=== PATIENT | female | born 1970 | race Caucasian/White ===

== ENCOUNTER 2017-05-13 10:34 | Inpatient (IN) | payer MEDICAID, OTHER ==
[~2017-05-13] VITALS: Ht 157.5 cm; Wt 62.0 kg
--- NOTE | 2017-05-13 11:11 | ERD ---
ER Documentation Chief Complaint Date/Time DATE: 05/13/17 TIME: 11:10 Chief Complaint PMD SENT PT FOR BLOOD TRANSFUSION, DENIES ANY OTHER COMPLAINT HPI Patient is a 47-year-old female who presents to the ED for check of anemia and possible blood transfusion. She states that she was sent here from her primary care clinic, [facility] and was told that she needs a blood transfusion. She states that they told her to come last however she states that she did not want to come and decided to come today. Her only complaint is fatigue and feeling tired. She denies dizziness. Denies headache. She denies bleeding. She has no other complaints. States that she is not taking iron supplements. ROS All systems reviewed and are negative except as per history of present illness. Medications Home Meds No Active Prescriptions or Reported Meds Allergies Allergies: Coded Allergies: No Known Allergy (Unverified , 05/23/12) PMhx/Soc Medical and Surgical Hx: pt denies Medical Hx, pt denies Surgical Hx History of Surgery: No Anesthesia Reaction: No Hx Neurological Disorder: No Hx Respiratory Disorders: No Hx Cardiac Disorders: No Hx Psychiatric Problems: No Hx Miscellaneous Medical Probl: No Hx Alcohol Use: No Hx Substance Use: No Hx Tobacco Use: No Smoking Status: Never smoker FmHx Family History: No coronary disease, No diabetes, No other Physical Exam Vitals Vital Signs Date Time Temp Pulse Resp B/P Pulse Ox O2 Delivery O2 Flow Rate FiO2 05/13/17 10:37 99.1 75 18 127/58 98 Physical Exam GENERAL: Well-developed, well-nourished female. Appears in no acute distress. HEAD: Normocephalic, atraumatic. EYES: Pupils are equally reactive bilaterally. EOMs grossly intact. No conjunctival erythema. ENT: Moist mucous membranes. No uvula deviation. No kissing tonsils. No exudates. NECK: Supple. No lymphadenopathy or thyromegaly. No meningismus. negative kernig. negative brudinski. LUNG: Clear to auscultation bilaterally. No rhonchi, wheezing, rales or coarse breath sounds. HEART: Regular rate and rhythm. No murmurs, rubs or gallops. ABDOMEN: No scars, ecchymosis or rashes noted. Soft, nontender, and nondistended. Positive bowel sounds in all four quadrants. No rebound tenderness , no guarding. (-) McBurneys point tenderness. No CVA tenderness. BACK: No midline tenderness. Extremities: Equal pulses bilaterally. No peripheral clubbing, cyanosis or edema. No unilateral leg swelling. NEUROLOGIC: Alert and oriented. Moving all four extremities. 5/5 strength in all extremities. Normal speech. Steady gait. SKIN: Normal color. Warm and dry. No rashes or lesions. Capillary refill < 2 seconds Result Diagram: 05/13/17 1130 Results 24 hrs Laboratory Tests Test 05/13/17 11:12 05/13/17 11:30 Urine Color YELLOW Urine Clarity SLIGHTLY CLOUDY Urine pH 5.0 Urine Specific [place] 1.016 Urine Ketones NEGATIVEmg/dL Urine Nitrite NEGATIVEmg/dL Urine Bilirubin NEGATIVEmg/dL Urine Urobilinogen NEGATIVEmg/dL Urine Leukocyte Esterase NEGATIVELeu/ul Urine Microscopic RBC 0/HPF Urine Microscopic WBC 1/HPF Urine Mucus FEW/HPF Urine Hemoglobin NEGATIVEmg/dL Urine Glucose NEGATIVEmg/dL Urine Total Protein NEGATIVEmg/dl White Blood Count 3.910^3/ul Red Blood Count 3.7010^6/ul Hemoglobin 6.6g/dl Hematocrit 23.4% Mean Corpuscular Volume 63.2fl Mean Corpuscular Hemoglobin 17.8pg Mean Corpuscular Hemoglobin Concent 28.2g/dl Red Cell Distribution Width 20.3% Platelet Count 26678^3/UL Mean Platelet Volume 9.6fl Procedures/MDM ER COURSE: I kept the patient and/or family informed of laboratory and diagnostic imaging results throughout the emergency room course. LAB INTERPRETATION: Urine test negative. CBC shows hemoglobin of 6.6. MEDICAL DECISION MAKING: This is a 47-year-old female with no past medical history who presents with symptoms of fatigue and sent here from her primary care for blood transfusion. Vital signs were reviewed. Patient is afebrile. Patient is not hypoxic. Patient is not toxic or ill-appearing. Patient's hemoglobin level is 6.6. I consulted with my supervising physician Dr. Olmos will be admitting the patient for blood transfusion. Patient is stable at transfer. All questions were answered with no new complaints. Departure Diagnosis: Primary Impression: Anemia Anemia type: unspecified type Qualified Code: D64.9 - Anemia, unspecified type Condition: Stable KENZIE TERAN PA-C May 13, 2017 11:11
[2017-05-13 11:42] LABS: ADD UMIC NO; UR ASCORBIC ACID 40 mg/dL (NEGATIVE); UR BILIRUBIN (Dip) NEGATIVE (NEGATIVE); UR BLOOD (Dip) NEGATIVE (NEGATIVE); UR CLARITY SLIGHTLY CLOUDY (CLEAR); UR COLOR YELLOW (YELLOW); UR GLUCOSE (Dip) NEGATIVE (NEGATIVE); UR KETONES (Dip) NEGATIVE (NEGATIVE); UR LEUKOCYTE ESTERASE (Dip) NEGATIVE Leu/ul (NEGATIVE); UR MUCUS FEW /HPF (NONE SEEN); UR NITRITE (Dip) NEGATIVE (NEGATIVE); UR RBC 0 /HPF (0-5); UR SPECIFIC GRAVITY (Dip) 1.016 (1.003-1.030); UR TOTAL PROTEIN (Dip) NEGATIVE (NEGATIVE); UR UROBILINOGEN (Dip) NEGATIVE (NEGATIVE)
[2017-05-13 11:44] LABS: ADD SCAN DIFF NO
[2017-05-13 11:47] LABS: ABNORMAL IP MESSAGE 1; HEMATOCRIT 23.4 % (37.0-47.0); MEAN CORPUSCULAR HEMOGLOBIN 17.8 pg (29.0-33.0); MEAN CORPUSCULAR HGB CONC 28.2 g/dl (32.0-37.0); MEAN CORPUSCULAR VOLUME 63.2 fl (82.0-101.0); MEAN PLATELET VOLUME 9.6 fl (7.4-10.4); PLATELET COUNT 388 10^3/UL (140-415); RED CELL DISTRIBUTION WIDTH 20.3 % (11.5-14.5); WHITE BLOOD COUNT 3.9 10^3/ul (4.8-10.8)
[2017-05-13] MEDS ORDERED: SOD CHLORIDE 0.9% 250 ML IV ONE (12:14)
--- NOTE | 2017-05-13 12:41 | QN ---
Documentation Comment My independent concise history is shortness of breath with minimal exertion. My pertinent physical exam findings are pallor. The plan is transfusion of 2 units packed red blood cells and admission to Dr. Verdin from the panel team. PAPA LAGUNA MD May 13, 2017 12:41
[2017-05-13 12:44] LABS: EOSINOPHILS # 0.1 10^3/ul (0.0-0.5); LYMPHOCYTES # 1.5 10^3/ul (0.8-2.9); MONOCYTE # 0.3 10^3/ul (0.3-0.9)
[2017-05-13] MEDS ORDERED: ACETAMINOPHEN 325 MG TAB PO PRN (13:00)
[2017-05-13] MEDS ORDERED: ONDANSETRON 4 MG INJ IV PRN (13:00)
[2017-05-13 15:00] VITALS: TEMP 96.8
--- NOTE | 2017-05-13 15:21 | HP ---
Date/Time of Note Date/Time of Note DATE: 05/13/17 TIME: 15:18 Assessment/Plan VTE Prophylaxis VTE Prophylaxis Intervention: SCD's Assessment/Plan Assessment/Plan 47 yo sent from PCP for anemia managed as follows: 1. Severe symptomatic anemia likely secondary to menorrhagia which could be secondary to impending menopause rule out other pelvic pathology PLAN: * Transfusion of PRBCs * Pelvic ultrasound * Supportive care HPI/ROS Admit Date/Time Admit Date/Time 05/13/17 . Hx of Present Illness This is a 47-year-old female who was referred to the emergency room by her primary care physician because of low hemoglobin levels. The patient states she had no significant symptoms, she had only gone to her primary care physician for routine physical. When pressed further however she did note some mild tiredness. When asked about her menstrual periods, she stated that she has been having heavier than normal menstrual periods for the last 8 months, whereas prior to the last 8 months. Used to last 3-4 days, in the last 8 months is been lasting as long as between 8 and 10 days. The patient states that she attributed this to impending menopause, and she thought nothing of it. However in the emergency room her hemoglobin was found to be 6.6. She is being admitted for blood transfusion and further workup. She denies black stools or blood in her stools, she denies bloody urine, she denies syncopal episodes, she denies headache or focal neurologic deficits. She has no family history of bleeding disorders. She would prefer not to have surgery if possible. She has delivered 2 children who are alive and healthy. ROS 12 point review if systems was done and pertinent findings are as noted. PMH/Family/Social Past Medical History Medical History: no pertinent history Past Surgical History Past Surgical Hx: no surgical history Family History Significant Family History: no pertinent family hx Social History Alcohol Use: none Smoking Status: Never smoker Drug Use: none Exam/Review of Systems Vital Signs Vitals Vital Signs Date Time Temp Pulse Resp B/P Pulse Ox O2 Delivery O2 Flow Rate FiO2 05/13/17 13:07 49 17 118/56 100 Room Air 05/13/17 10:37 99.1 Exam Exam GENERAL: Patient is alert, oriented x 3, in no apparent distress; does not appear acutely or chronically ill. Patient is able to sit up unassisted.Patient makes good eye contact, is conversant, interactive, coherent. Patient appears calm and comfortable and is able to follow commands. HEENT: Oropharynx is clear. There is no carotid bruit, no masses. Patient's pupils are equal, round and reactive to light bilaterally. Extraocular motions are intact. There is no scleral icterus. There is no facial asymmetry. NECK: Supple. LUNGS: Clear to auscultation bilaterally with good air entry. No Wheezes or crackles. HEART: S1, S2. No murmur, gallops or rubs. Regular rate and rhythm. ABDOMEN: Soft, nontender. Normoactive bowel sounds. There are no stigmata of chronic liver disease. BACK: no costovertebral angle tenderness. GENITOURINARY: Deferred. EXTREMITIES: No edema. There is no cyanosis, clubbing. There are 2+ pulses bilaterally distally. NEUROLOGIC: The patient has no lateralizing signs. Cranial nerves II-XII are intact. SKIN: Otherwise, unremarkable. Labs Result Diagram: 05/13/17 1130 ALAN MIRELES May 13, 2017 15:21
[2017-05-13 16:04] LABS: CALCIUM 9.1 mg/dl (8.4-10.2); CREATININE 0.54 mg/dl (0.44-1.00); POTASSIUM 3.8 mmol/L (3.5-5.1)
[2017-05-13 16:12] LABS: TOTAL IRON BINDING CAPACITY 415 ug/dl (241-421)
[2017-05-13 16:17] LABS: IRON < 10 ug/dl (35-150)
--- NOTE | 2017-05-13 16:22 | RADRPT ---
PROCEDURE: US Pelvis. CLINICAL INDICATION: Vaginal bleeding. Anemia. TECHNIQUE: The pelvis was evaluated with transabdominal sonography in the axial and sagittal plane s. COMPARISON: No prior study is available for comparison. FINDINGS: Uterus: 9.2 x 5.2 x 6.7 cm. Endometrium: 8.5 mm. Right ovary: 3.8 x 2.7 x 2.6 cm. Left ovary: 4.3 x 3.4 x 3.7 cm. Uterine masses: There is an anterior lower uterine segment hypoechoic mass consistent with a fibroid measuring 2.4 x 2.5 x 2.5 cm. There is no other uterine mass. Ovarian masses: The right ovary is normal. There is a left ovarian cyst with internal echoes measur ing 3.2 x 3.0 x 3.0 cm. Color Doppler and pulsed Doppler sonography demonstrate normal flow to the o varies. Other pelvic masses: None. Free fluid: None. IMPRESSION: 1. Anterior lower uterine segment fibroid measuring 2.5 cm. 2. Left ovarian complex cyst consistent with a probable hemorrhagic cyst measuring 3.2 cm. Follow- up ultrasound in 6 weeks is advised. 3. Otherwise normal pelvic ultrasound. RPTAT: QQ .Jeff Rollins MD, MD Date Time Electronically viewed and signed by .Jeff Rollins MD, on 05/13/2017 16:22 .R/
[2017-05-13 16:50] LABS: HEMOGLOBIN 6.6 g/dl (12.0-16.0)
[2017-05-13 18:45] VITALS: BP 134/66; PULSE 61; RESP 15
[2017-05-13 19:26] VITALS: BP 132/64; PULSE 51; RESP 16
[2017-05-13 19:52] VITALS: Ht 157.5 cm; Wt 62.0 kg
[2017-05-13 20:36] VITALS: BP 134/65; PULSE 56; RESP 16
[2017-05-13 21:35] VITALS: BP 133/66; PULSE 53; RESP 16
[2017-05-14 06:15] LABS: ADD SCAN DIFF NO
[2017-05-14 06:30] LABS: ABNORMAL IP MESSAGE 1; BASOPHILS % 0.4 % (0.0-2.0); EOSINOPHILS # 0.2 10^3/ul (0.0-0.5); EOSINOPHILS % 2.5 % (0.0-7.0); HEMOGLOBIN 9.4 g/dl (12.0-16.0); LYMPHOCYTES # 1.7 10^3/ul (0.8-2.9); LYMPHOCYTES % 25.8 % (15.0-51.0); MEAN CORPUSCULAR HGB CONC 29.4 g/dl (32.0-37.0); MEAN CORPUSCULAR VOLUME 68.2 fl (82.0-101.0); MEAN PLATELET VOLUME 10.3 fl (7.4-10.4); MONOCYTE # 0.6 10^3/ul (0.3-0.9); MONOCYTES % 8.7 % (0.0-11.0); NEUTROPHIL # 4.2 10^3/ul (1.6-7.5); NEUTROPHILS % 62.3 % (39.0-77.0); PLATELET COUNT 383 10^3/UL (140-415); RED BLOOD COUNT 4.69 10^6/ul (4.20-5.40); RED CELL DISTRIBUTION WIDTH 25.4 % (11.5-14.5); WHITE BLOOD COUNT 6.8 10^3/ul (4.8-10.8)
[2017-05-14 06:59] LABS: ALBUMIN 3.9 g/dl (3.3-4.9); BILIRUBIN,INDIRECT 0.4 mg/dl (0-1.1); BILIRUBIN,TOTAL 0.4 mg/dl (0.2-1.3)
[2017-05-14 07:24] LABS: CALCIUM 9.2 mg/dl (8.4-10.2); CREATININE 0.62 mg/dl (0.44-1.00); POTASSIUM 4.2 mmol/L (3.5-5.1)
[2017-05-14] MEDS ORDERED: DOCU-144 PO (10:20)
[2017-05-14] MEDS ORDERED: FER325 PO (10:20)
[2017-05-14 11:53] LABS: CALCIUM 9.1 mg/dl (8.4-10.2); CREATININE 0.59 mg/dl (0.44-1.00); POTASSIUM 4.2 mmol/L (3.5-5.1)
[2017-05-14 12:23] LABS: THYROID STIMULATING HORMONE 1.73 MIU/L (0.465-4.680)
[2017-05-14] MEDS: FERROUS SULFATE (EC) 325 MG TAB PO SCH ×2 (12:37→21:07)
[2017-05-14] MEDS: DOCUSATE SODIUM 100 MG CAP PO SCH ×2 (12:37→21:07)
[2017-05-14] MEDS ORDERED: SOD FERRIC GLUC COMPLX 125 MG in SOD CHLORIDE 0.9% 100 ML IVPB SCH (13:00)
--- NOTE | 2017-05-14 16:10 | DS ---
Date/Time of Note Date/Time of Note DATE: 05/14/17 TIME: 16:08 Discharge Summary Admission/Discharge Info Admit Date/Time May 13, 2017 at 12:40 Discharge Date/Time 05/04/17 . Discharge Diagnosis 1. Severe anemia secondary to chronic menorrhagia likely secondary to #2 2. Anterior lower uterine segment fibroid measuring 2.5 cm. 3. Chronic iron deficiency contributing to #1 secondary to menorrhagia . Patient Condition: Stable Consults See hospital course. . Procedures See hospital course. . Hospital Course This is a 47-year-old female who was referred to the emergency room by her primary care physician when she had gone in for routine physical and was found to be severely anemic. The patient states that she did have some mild dizziness but she thought nothing of it, and she also went to see her primary care doctor just for a physical. When asked however she did recall that she has been having slightly heavier periods for the last 8 months. She said prior to 8 months ago, her periods usually lasted only for about 3-4 days but since about 8 months ago it has started lasting for up to 8-10 days. She attributed this to menopausal symptoms coming up, and so she thought nothing of it. However on the physical he was found to have a very low hemoglobin and her doctor told her to come to the emergency room. She however with a diffuse days before coming in, when she came in she was found to have a hemoglobin of 6.6. She was admitted for severe anemia, and a pelvic ultrasound was done that showed an anterior lower uterine segment fibroid measuring 2.5 cm and the left ovarian complex cyst consistent with probable hemorrhagic cyst measuring 3.2 cm. I reviewed her imaging and her history with the technology analyst over the phone , and as patient has no active bleeding, their recommendations are outpatient follow-up with a technology analyst, they agreed with blood transfusion, they did however recommend a thyroid screen prior to discharge which was done and I have reviewed as normal. The patient was also started on IV iron therapy because of severe iron deficiency likely secondary to chronic vaginal bleeding, and she will be continued on oral iron therapy. I have spoken with her in detail about her findings, I have also given her our recommendations, of encouraged her to return to her primary care doctor who referred her to the emergency room as soon as possible, and she has verbalized understanding. This was done with a cab worker. Patient has been reviewed in detail today and in my opinion is stable for discharge for continued outpatient follow-up. . Home Meds Active Scripts Ferrous Sulfate* (Ferrous Sulfate*) 325 Mg Tabec, 325 MG PO BID for 30 Days, TAB 2 Refills Prov:ALAN MIRELES. 05/14/17 Docusate Sodium* (Colace*) 100 Mg Capsule, 100 MG PO BID, #60 CAP 2 Refills Prov:ALAN MIRELES. 05/14/17 Follow-up Plan See hospital course. . Primary Care Provider Care Physician No Primary Time spent on discharge: > 30 minutes Pending Labs Laboratory Tests Test 05/14/17 05:30 05/14/17 06:24 05/14/17 10:40 White Blood Count 6.810^3/ul (4.8-10.8) Red Blood Count 4.6910^6/ul (4.20-5.40) Hemoglobin 9.4g/dl (12.0-16.0) Hematocrit 32.0% (37.0-47.0) Mean Corpuscular Volume 68.2fl (82.0-101.0) Mean Corpuscular Hemoglobin 20.0pg (29.0-33.0) Mean Corpuscular Hemoglobin Concent 29.4g/dl (32.0-37.0) Red Cell Distribution Width 25.4% (11.5-14.5) Platelet Count 63629^3/UL (140-415) Mean Platelet Volume 10.3fl (7.4-10.4) Neutrophils % 62.3% (39.0-77.0) Lymphocytes % 25.8% (15.0-51.0) Monocytes % 8.7% (0.0-11.0) Eosinophils % 2.5% (0.0-7.0) Basophils % 0.4% (0.0-2.0) Nucleated Red Blood Cells % 0.0/100WBC (0.0-0.0) Neutrophils # 4.210^3/ul (1.6-7.5) Lymphocytes # 1.710^3/ul (0.8-2.9) Monocytes # 0.610^3/ul (0.3-0.9) Eosinophils # 0.210^3/ul (0.0-0.5) Basophils # 0.010^3/ul (0.0-0.1) Nucleated Red Blood Cells # 0.010^3/ul (0.0-0.0) Sodium Level 141mmol/L (135-144) 140mmol/L (135-144) Potassium Level 4.2mmol/L (3.5-5.1) 4.2mmol/L (3.5-5.1) Chloride Level 108mmol/L (97-110) 106mmol/L (97-110) Carbon Dioxide Level 24mmol/L (21-31) 23mmol/L (21-31) Anion Gap 13 (8-16) 15 (8-16) Blood Urea Nitrogen 12mg/dl (7-20) 12mg/dl (7-20) Creatinine 0.62mg/dl (0.44-1.00) 0.59mg/dl (0.44-1.00) Glucose Level 78mg/dl (70-220) 79mg/dl (70-220) Calcium Level 9.2mg/dl (8.4-10.2) 9.1mg/dl (8.4-10.2) Total Bilirubin 0.4mg/dl (0.2-1.3) Direct Bilirubin 0.00mg/dl (0.00-0.20) Indirect Bilirubin 0.4mg/dl (0-1.1) Aspartate Amino Transf (AST/SGOT) 17IU/L (15-46) Alanine Aminotransferase (ALT/SGPT) 23IU/L (13-69) Alkaline Phosphatase 63IU/L (42-121) Total Protein 7.0g/dl (6.1-8.1) Albumin 3.9g/dl (3.3-4.9) Lab Scanned Report BLOOD [id number] Magnesium Level 2.0mg/dl (1.7-2.5) Thyroid Stimulating Hormone (TSH) 1.730MIU/L (0.465-4.680) ALAN MRIELES May 14, 2017 16:10
[2017-05-14 19:27] VITALS: BP 129/58; RESP 20
[2017-05-15 07:35] VITALS: BP 109/54; RESP 18
[2017-05-15 08:32] LABS: ADD SCAN DIFF NO
[2017-05-15 08:37] LABS: ABNORMAL IP MESSAGE 1; BASOPHILS % 0.4 % (0.0-2.0); EOSINOPHILS # 0.2 10^3/ul (0.0-0.5); EOSINOPHILS % 2.8 % (0.0-7.0); HEMATOCRIT 33.5 % (37.0-47.0); LYMPHOCYTES # 1.6 10^3/ul (0.8-2.9); LYMPHOCYTES % 27.2 % (15.0-51.0); MEAN CORPUSCULAR HEMOGLOBIN 20.4 pg (29.0-33.0); MEAN CORPUSCULAR HGB CONC 29.9 g/dl (32.0-37.0); MEAN CORPUSCULAR VOLUME 68.4 fl (82.0-101.0); MEAN PLATELET VOLUME 10.7 fl (7.4-10.4); MONOCYTE # 0.5 10^3/ul (0.3-0.9); MONOCYTES % 9.3 % (0.0-11.0); NEUTROPHIL # 3.4 10^3/ul (1.6-7.5); NEUTROPHILS % 60.1 % (39.0-77.0); PLATELET COUNT 402 10^3/UL (140-415); RED CELL DISTRIBUTION WIDTH 24.9 % (11.5-14.5); WHITE BLOOD COUNT 5.7 10^3/ul (4.8-10.8)
[2017-05-15] MEDS: DOCUSATE SODIUM 100 MG CAP PO SCH (09:16)
[2017-05-15] MEDS: FERROUS SULFATE (EC) 325 MG TAB PO SCH (09:16)
[2017-05-15 09:24] LABS: T3 UPTAKE 29.8 % (23.5-40.5)
[2017-05-15 09:54] LABS: CALCIUM 8.5 mg/dl (8.4-10.2); CREATININE 0.64 mg/dl (0.44-1.00); POTASSIUM 3.7 mmol/L (3.5-5.1)
--- NOTE | 2017-05-15 10:01 | QN ---
Documentation Comment Discharge Summary Addendum S: Patient remains well Vitals: Temperature 97.9/heart rate 45/respiratory rate 18/blood pressure 109/ 50 4/100% on room air Constitutional: alert, oriented Head: atraumatic, normocephalic Neck: non-tender, supple Respiratory: clear to auscultation Cardiovascular: regular rate and rhythm Gastrointestinal: nl liver, spleen, non-tender, soft Extremities: normal pulses a/p : 1. Severe anemia secondary to chronic menorrhagia likely secondary to #2 2. Anterior lower uterine segment fibroid measuring 2.5 cm. 3. Chronic iron deficiency contributing to #1 secondary to menorrhagia 4. Asymptomatic bradycardia ALAN MIRELES May 15, 2017 10:01
--- NOTE | 2017-05-15 18:35 | PDOCDIS ---
Discharge Instructions DIAGNOSIS Discharge Diagnosis 1. Severe anemia secondary to chronic menorrhagia likely secondary to #2 2. Anterior lower uterine segment fibroid measuring 2.5 cm. 3. Chronic iron deficiency contributing to #1 secondary to menorrhagia . CONDITION Patient Condition: Stable HOME CARE INSTRUCTIONS: Diet Instructions: RegularSpecial Diet: regular diet ACTIVITY: Activity Restrictions: Rest between Activity Avoid heavy lifting Avoid Heavy Housework FOLLOW UP/APPOINTMENTS Follow-up Plan Followup with your primary doctor within the next 1-2 weeks. If you don't have one please let someone know, we can give you resources that may help you pick one. You may call Dr Indio Méndez's office. he's accepting new patients Name, Degree: Indio Méndez MD Specialty: Internal Medicine Comments: Office Address: [address] [place] [address] Office Office You may also call your insurance company to assign one to you. Review your medication list with your nurse before leaving and if you need new prescriptions please let your nurse know. I may have made changes to your home medications or given you new prescriptions , please let your primary doctor know as well. Stay compliant with your medications and report any side effects to your PCP or pharmacist. Return to the ER if you have any concerns and cannot reach your doctors or call your insurance company, they usually have a nurse that can help you. REFERRALS Other Referrals Patient is to follow-up with gynecology for further management of menorrhagia. ALAN MIRELES May 15, 2017 18:35
--- NOTE | 2017-05-19 20:53 | RADRPT ---
Vent Rate: 51 bpm RR Interval: 0 msec MS Interval: 154 msec QRS Duration: 90 msec QT Interval: 436 msec QTC Interval: 401 msec P-R-T [place]: 19 - 45 - 70 degrees Sinus bradycardia Otherwise normal ECG Electronically Signed By: Prabhu Morgan [id number]
== END 2017-05-15 11:55 | disposition home or self-care (01) | DRG 812 ==
LOC: FTE 10:34 → MS2 12:40
PROVIDERS: ADMIT Family Medicine; ATTEND Family Medicine
PROC: 30233N1 Transfusion of Nonautologous Red Blood Cells into Peripheral Vein, Percutaneous Approach (ICD-10-PCS; principal; 2017-05-13)
DX: D50.0 Iron deficiency anemia secondary to blood loss (chronic) (principal); D25.9 Leiomyoma of uterus, unspecified; N92.0 Excessive and frequent menstruation with regular cycle
CPT/HCPCS: 36415; 36430; 76856; 80048; 80076; 81001; 81003; 83540; 83735; 84436; 84443; 84479; 85025; 86850; 86900; 86901; 86920; 93005; J2916; J7040; P9016

== ENCOUNTER 2018-07-16 16:51 | Inpatient (IN) | END 2018-07-20 18:10 | disposition home or self-care (01) | DRG 742 ==